=== PATIENT | female | born 2000 | race Asian ===

== ENCOUNTER 2024-11-04 18:41 | Emergency (ER) | payer OTHER, SELFPAY ==
[2024-11-04 18:57] VITALS: BP 116/89; PULSE 93; RESP 16; TEMP 36.9; O2SAT 100
[2024-11-04 19:05] LABS: EDUAAPPEAR Clear; EDUABILI Negative (Negative); EDUABLOOD 2+ (Negative); EDUACOLOR1 Light/Pale; EDUAGLUCOSE Negative (Negative); EDUAKETONE Negative (Negative); EDUALEUKO 1+ (Negative); EDUANITRATE Negative (Negative); EDUAPROTEIN Negative (Negative); EDUAUROBILI 0.2
--- NOTE | 2024-11-04 19:06 | ED_ITS ---
HPI - Female Genitourinary General Chief complaint: Abdominal Pain Stated complaint: abdominal pain Time Seen by Provider: 11/04/24 19:06 Source: patient Mode of arrival: ambulatory Limitations: no limitations History of Present Illness HPI Narrative: 24-year-old female presents with complaint of urinary frequency, urgency, dysuria for the last week. Reports intermittent low back aching and abdominal cramping. No abdominal or back pain at this time. Afebrile. Last menstrual period 1 week ago. All systems reviewed and negative except as noted above. Related Data Allergies Allergy/AdvReac Type Severity Reaction Status Date / Time No Known Allergies Allergy Verified 11/04/24 18:54 Review of Systems Review of Systems: CONSTITUTIONAL: Denies fever, chills, or sweats. EYES: Denies visual changes, redness, or discharge. ENT: Denies rhinorrhea, congestion, sore throat, or otalgia. CARDIOVASCULAR: Denies chest pain, palpitations, or edema. RESPIRATORY: Denies cough or dyspnea. GASTROINTESTINAL: Denies abdominal pain, nausea, vomiting, or diarrhea. GENITOURINARY: Reports dysuria, frequency, urgency, intermittent abdominal and low back pain. SKIN: Denies rash or itching. MUSCULOSKELETAL: Denies back pain, joint pain, or myalgia. NEUROLOGIC: Denies headache, numbness, or weakness. PSYCHIATRIC: Denies anxiety or depression. All other systems reviewed are negative, except as documented in HPI. PMFSH Comments At time of signature, agree with nursing past medical, surgical, social and family history. There is no relevant family history pertinent to the presenting complaint. Exam Narrative: GENERAL: This is a well-nourished, well-developed patient, in no apparent distress. HEAD: normocephalic, atraumatic. EYES: PERRL. Sclera clear/white. Vision is grossly intact. EARS: External ears normal NOSE: External nose normal NECK: Neck supple, non-tender without lymphadenopathy, masses or thyromegaly. CARDIOVASCULAR: Regular rate and rhythm without murmurs, gallops, or rubs. RESPIRATORY: Clear to auscultation. Breath sounds equal bilaterally. No wheezes, rales, or rhonchi. GASTROINTESTINAL: Abdomen soft, non-tender, nondistended. Bowel sounds are active. No hepato-splenomegaly, or palpable masses. No guarding. SKIN: warm, Dry, intact with no suspicious lesions or rash, good texture and turgor. NEURO: awake, alert, and oriented to person, place and time. There were no obvious focal neurologic abnormalities. EXTREMITIES: No joint tenderness, effusion, or edema noted. Course Course Level of Care: Express Care Visit Vital Signs Vital signs: Vital Signs Temperature 36.9 C 11/04/24 18:57 Pulse Rate 93 11/04/24 18:57 Respiratory Rate 16 11/04/24 18:57 Blood Pressure 116/89 11/04/24 18:57 Pulse Oximetry 100 11/04/24 18:57 Temperature 36.9 C 11/04/24 18:57 Pulse Rate 93 11/04/24 18:57 Respiratory Rate 16 11/04/24 18:57 Blood Pressure 116/89 11/04/24 18:57 Pulse Oximetry 100 11/04/24 18:57 Reviewed MDM - Female Genitourinary MDM Narrative Medical decision making narrative: Urinalysis positive for blood, leukocytes. Urine culture ordered. Will treat patient with antibiotic today for urinary tract infection. Patient is well- appearing, nontoxic. Afebrile. Patient is aware of diagnosis, understands and agrees to treatment plan. Anticipatory guidance given. Patient agrees to follow-up as directed and is aware of reasons to seek care at the emergency department. Portions of this record may have been created with voice recognition software Lab Data Labs: Lab Results 11/04/24 Range/Units 19:02 POC Urine Color Light/pale POC Urine Clarity Clear POC Urine pH 7.0 POC Ur Specif [place] 1.010 POC Urine Protein Negative (Negative) POC Ur Glucose (UA) Negative (Negative) POC Urine Ketones Negative (Negative) POC Urine Blood 2+ (Negative) POC Urine Nitrite Negative (Negative) POC Urine Bilirubin Negative (Negative) POC Urine Urobilinogen 0.2 POC U Leukocyte Esteras 1+ (Negative) Discharge Plan Discharge Clinical Impression: Urinary tract infection Qualifiers: Urinary tract infection type: site unspecified Hematuria presence: with hematuria Qualified Code(s): N39.0 - Urinary tract infection, site not specified Patient Disposition: Home, Self-Care Condition: Stable Instructions: Antibiotic Form, Urinary Tract Infection in Women (ED) Additional Instructions: Take antibiotics as prescribed. Drink at least 64 oz of water a day. Continue to take ibuprofen or Tylenol every 6-8 hours as needed for pain. For any worsening of your symptoms go to the ER. Patient Language: Nepalese Prescriptions: New sulfamethoxazole-trimethoprim [Bactrim DS] 800-160 mg tablet 1 tablet PO Q12H 5 Days Qty: 10 0RF Follow-up/Referrals: PHYSICIAN,AIR ANALYSIS ENGINEERING TECHNICIAN [Primary Care Provider] - Time of Disposition: 19:13
== END 2024-11-04 19:16 | disposition home or self-care (01) ==
PROVIDERS: Emergency Provider Nurse Practitioner Family
DX: N39.0 Urinary tract infection, site not specified (principal)
CPT/HCPCS: 81003; 87086; 99203; G0463

== ENCOUNTER 2024-12-27 12:15 | Emergency (ER) | payer OTHER, SELFPAY ==
[2024-12-27 12:34] VITALS: BP 120/82; PULSE 89; RESP 16; TEMP 36.6; O2SAT 100
--- NOTE | 2024-12-27 13:52 | ED_ITS ---
HPI - Female Genitourinary General Chief complaint: Urogenital-Female Stated complaint: Uti Symptoms Time Seen by Provider: 12/27/24 13:53 Source: patient and RN notes reviewed Mode of arrival: ambulatory Limitations: no limitations History of Present Illness HPI Narrative: 24-year-old female presented for complaint of burning with urination yesterday. She states she had a UTI in November and is concerned the infection will get worse. Denies hematuria, nausea, vomiting, abdominal pain, flank pain, constipation, diarrhea, fevers or chills. Denies concern for STD or . Related Data Allergies Allergy/AdvReac Type Severity Reaction Status Date / Time No Known Allergies Allergy Verified 12/27/24 12:37 Review of Systems Review of Systems: CONSTITUTIONAL: Denies body aches, fever, chills, or sweats. CARDIOVASCULAR: Denies chest pain, palpitations, or edema. RESPIRATORY: Denies cough or dyspnea. GASTROINTESTINAL: Denies abdominal pain, nausea, vomiting, or diarrhea. GENITOURINARY: Reports dysuria, denies frequency, urgency, hematuria, flank pain SKIN: Denies rash, itching, or wounds. MUSCULOSKELETAL: Denies back pain or myalgia. PMFSH Comments At time of signature, I have reviewed and agree with nursing past medical, surgical, social and family history unless otherwise noted. Please see nursing chart for further information. There is no relevant family history pertinent to the presenting complaint Exam Narrative: GENERAL: Well-appearing ENT: Mucous membranes pink and moist. CHEST: No respiratory distress. Clear to auscultation. HEART: Regular rate and rhythm. ABDOMEN: Soft, nontender, nondistended, normal active bowel sounds. No CVA tenderness SKIN: Warm, dry, no rash. NEURO: No focal deficits. Alert and oriented x3. Gait steady. PSYCH: Normal affect. Course Course Emergency Course: Patient is aware of diagnosis, understands and agrees to treatment plan. Anticipatory guidance given. Patient agrees to follow-up as directed and is aware of reasons to seek care at the emergency department. Portions of this record may have been created with voice recognition software Level of Care: Express Care Visit Vital Signs Vital signs: Vital Signs Temperature 97.9 F 12/27/24 12:34 Pulse Rate 89 12/27/24 12:34 Respiratory Rate 16 12/27/24 12:34 Blood Pressure 120/82 12/27/24 12:34 Pulse Oximetry 100 12/27/24 12:34 Temperature 97.9 F 12/27/24 12:34 Pulse Rate 89 12/27/24 12:34 Respiratory Rate 16 12/27/24 12:34 Blood Pressure 120/82 12/27/24 12:34 Pulse Oximetry 100 12/27/24 12:34 Reviewed MDM - Female Genitourinary MDM Narrative Medical decision making narrative: Discussed physical exam findings and urine dip will culture. Previous urine culture was negative. Discussed these findings with patient. Advised supportive measures and signs/symptoms to go to the ER. Pt is appropriate for outpt treatment and f/u. Differential Diagnosis Differential diagnosis: Likely urinary tract infection, cystitis and other Discharge Plan Discharge Clinical Impression: Dysuria Patient Disposition: Home, Self-Care Condition: Stable Instructions: Antibiotic Form, Urinary Tract Infection in Women (ED) Additional Instructions: Your urine will be sent of for a culture to determine if bacteria is causing your symptoms. If the culture shows a UTI, you will be notified and an ant ibiotic will be called in for you. you will need to follow up with your PCP for further evaluation and treatment if symptoms persist, call today to schedule follow-up appointment. Go to the ER for any worsening symptoms or concerns. Patient Language: Occitan Follow-up/Referrals: PHYSICIAN,FACILITY OPERATIONS MANAGER [Primary Care Provider] - Time of Disposition: 13:58
[2024-12-27 14:17] LABS: EDUAAPPEAR Clear; EDUABILI Negative (Negative); EDUABLOOD Negative (Negative); EDUACOLOR1 Yellow; EDUAGLUCOSE Negative (Negative); EDUAKETONE Negative (Negative); EDUALEUKO Negative (Negative); EDUANITRATE Negative (Negative); EDUAPH 7.5; EDUAPROTEIN Negative (Negative); EDUASPGRAVITY 1.015; EDUAUROBILI 0.2
== END 2024-12-27 14:00 | disposition home or self-care (01) ==
PROVIDERS: Emergency Provider Nurse Practitioner Family
DX: R30.0 Dysuria (principal)
CPT/HCPCS: 81003; 87086; 87186; 99213; G0463